=== PATIENT | male | born 1950 | race Caucasian/White ===

== ENCOUNTER 2017-04-11 21:13 | Inpatient (IN) | payer OTHER, MEDICARE ==
[2017-04-11] MEDS ORDERED: DEXAMETHASONE 4 MG TABLET PO ONE (23:18)
--- NOTE | 2017-04-11 23:18 | ER Document Report ---
ED General - General Chief Complaint: Flu Symptoms Stated Complaint: SHORTNESS OF BREATH Time Seen by Provider: 04/11/17 23:05 Notes: The patient is a 67-year-old male, past medical history hypertension, black lung , presents with 1 day of subjective fevers, dry cough and sinus congestion. Patient did not get his flu shot this year. He has had 3 other instances this winter and said that steroids and a Z-Reuben have helped him. Patient denies syncope, hemoptysis, leg swelling, chest pain at rest, headache, back pain, nausea, vomiting or abdominal pain. TRAVEL OUTSIDE OF THE [place] IN LAST 30 DAYS: No - Related Data Allergies/Adverse Reactions: sulfamethoxazole [From Bactrim] Allergy (Verified 10/08/12 09:06) trimethoprim [From Bactrim] Allergy (Verified 10/08/12 09:06) Past Medical History - General Information source: Patient - Social History Smoking Status: Never Smoker Frequency of alcohol use: None Drug Abuse: None Family History: Reviewed & Not Pertinent Patient has suicidal ideation: No Patient has homicidal ideation: No - Past Medical History Cardiac Medical History: Reports: Hx Hypercholesterolemia, Hx Hypertension Denies: Hx Atrial Fibrillation, Hx Congestive Heart Failure, Hx Coronary Artery Disease, Hx Heart Attack, Hx Peripheral Vascular Disease, Hx Pulmonary Embolism, Hx Heart Murmur Pulmonary Medical History: Denies: Hx Asthma, Hx Bronchitis, Hx COPD, Hx Pneumonia, Hx Respiratory Failure, Hx Sleep Apnea, Hx Tuberculosis Neurological Medical History: Denies: Hx Seizures Endocrine Medical History: Reports: Hx Diabetes Mellitus Type 2, Hx Hypothyroidism. Denies: Hx Graves' Disease, Hx Hyperthyroidism Renal/ Medical History: Reports: Hx Benign Prostatic Hyperplasia, Hx Kidney Stones. Denies: Hx End Stage Renal Disease, Hx Peritoneal Dialysis Malignancy Medical History: Denies Hx Lung Cancer Musculoskeltal Medical History: Reports Hx Arthritis, Denies Hx Fibromyalgia, Denies Hx Muscular Dystrophy Traumatic Medical History: Denies: Hx Fractures Past Surgical History: Reports: Hx Orthopedic Surgery - knee. Denies: Hx Appendectomy, Hx Bowel Surgery, Hx Cholecystectomy, Hx Coronary Artery Bypass Graft, Hx Gastric Bypass Surgery, Hx Herniorrhaphy, Hx Pacemaker, Hx Tonsillectomy - Immunizations Hx Diphtheria, Pertussis, Tetanus Vaccination: No Review of Systems - Review of Systems Notes: REVIEW OF SYSTEMS: CONSTITUTIONAL: +fevers, -chills EENT: -eye pain, -difficulty swallowing, +nasal congestion CARDIOVASCULAR: -chest pain, -syncope. RESPIRATORY: +cough, -SOB GASTROINTESTINAL: -abdominal pain, -nausea, -vomiting, -diarrhea GENITOURINARY: -dysuria, -hematuria MUSCULOSKELETAL: -back pain, -neck pain SKIN: -rash or skin lesions. HEMATOLOGIC: -easy bruising or bleeding. LYMPHATIC: -swollen, enlarged glands. NEUROLOGICAL: -altered mental status or loss of consciousness, -headache, - neurologic symptoms PSYCHIATRIC: -anxiety, -depression. ALL OTHER SYSTEMS REVIEWED AND NEGATIVE. Physical Exam - Vital signs Vitals: Temp Pulse Resp BP Pulse Ox 99.4 F 81 20 151/62 H 96 04/11/17 21:25 04/11/17 21:25 04/11/17 21:25 04/11/17 21:25 04/11/17 21:25 - Notes Notes: PHYSICAL EXAMINATION: GENERAL: Well-appearing, well-nourished and in no acute distress. HEAD: Atraumatic, normocephalic. EYES: Pupils equal round and reactive to light, extraocular movements intact, sclera anicteric, conjunctiva are normal. ENT: B/L maxiallary sinus tenderness with swollen turbinates, nares patent, oropharynx clear without exudates. Moist mucous membranes. NECK: Normal range of motion, supple without lymphadenopathy LUNGS: Breath sounds clear to auscultation bilaterally and equal. No wheezes rales or rhonchi. HEART: Regular rate and rhythm without murmurs ABDOMEN: Soft, nontender, normoactive bowel sounds. No guarding, no rebound. No masses appreciated. EXTREMITIES: Normal range of motion, no pitting or edema. No cyanosis. NEUROLOGICAL: Cranial nerves grossly intact. Normal speech, normal gait. Normal sensory and motor exams. PSYCH: Normal mood, normal affect. SKIN: Warm, Dry, normal turgor, no rashes or lesions noted. Course - Re-evaluation Re-evalutation: Patient does not appear to be in any respiratory distress. Unable to obtain rapid flu test due to lack of test in [place]. Patient's symptoms are ongoing for 24 hours and discussed the risks and benefits of Tamiflu with the patient. The patient and agree that the risks of Tamiflu outweigh any benefits. Chest x-ray does not show any acute infiltrates or any other abnormalities. Instructed him about symptomatic treatment for his URI and sinus congestion. Given strict return precautions and he understands. - Vital Signs Vital signs: Temp Pulse Resp BP Pulse Ox 99.4 F 81 20 151/62 H 96 04/11/17 21:25 04/11/17 21:25 04/11/17 21:25 04/11/17 21:25 04/11/17 21:25 - Diagnostic Test Radiology reviewed: Image reviewed, Reports reviewed Radiology results interpreted by me: CXR: NAD Discharge - Discharge Clinical Impression: Sinus congestion URI (upper respiratory infection) Qualifiers: URI type: unspecified URI Qualified Code(s): J06.9 - Acute upper respiratory infection, unspecified Condition: Stable Additional Instructions: UPPER RESPIRATORY ILLNESS: You have a viral infection of the respiratory passages -- a "cold." This common infection causes nasal congestion, drainage, and often sore throat and cough. It is highly contagious. The disease usually lasts about 10 to 14 days. There is no "cure" for the viral infection -- it must run its course. If there is a complication, such as bacterial infection in the nose, sinuses, middle ear, or bronchial tubes, antibiotics may be required. The antibiotics won't affect the virus. Drink plenty of fluids. A humidifier may help. An expectorant medication or decongestant may make you more comfortable. Use acetaminophen or ibuprofen for fever or aches. See the doctor if fever persists over two days, if there is any significant worsening of your symptoms, or if you simply fail to improve as expected. BRONCHOSPASM: You have tightness in the bronchial tubes, called bronchospasm. This often occurs with bronchial infections. Allergies, inhaled chemicals, and polluted or cold air can also provoke bronchospasm. It's more likely in patients with asthma in the family. Emergency treatment of bronchospasm may include adrenaline shots or bronchodilator aerosol. You may feel lightheaded and have a rapid pulse for an hour or two. Rest and get plenty of fluids. At home, we'll treat you with a bronchodilator inhaler. Antibiotics and corticosteroids may be required for some patients. Until you recover, avoid chemical fumes, dusts, pollens, and exercising in very cold or dry air. If you smoke, stop now!! If you develop a fever, increased wheezing, chest pain, or severe shortness of breath, you should contact the doctor immediately. COUGH-SUPPRESSANT & EXPECTORANT MEDICATION: You are to use a cough medication as needed for relief of symptoms. This medicine is a combination of an expectorant (to make the mucous thinner and more easily "coughed up") and a cough suppressant (to reduce the frequency of coughing). The cough-suppressant medicine is related to narcotics. You may experience mild nausea and sleepiness. Some patients who are very sensitive to narcotics may have stomach pain from this medicine. Taking the medicine with food reduces these side effects. Do not drive or work with machinery until you know how this medicine affects you. The expectorant should have no side effects. Iodine-containing expectorants (such as organidin) should not be taken by persons with active thyroid disease unless approved by your doctor. Call the doctor if you develop shortness of breath, hives, rash, itching, lightheadedness, or severe nausea and vomiting. INHALED BRONCHODILATORS: You have received a treatment of and/or prescription for an inhaled bronchodilator -- a medication which stimulates the airways in the lung to dilate. This improves the flow of air in asthma, bronchitis, and emphysema. These medicines have some similarity to adrenaline, and can cause similar side effects: shakiness, racing heart, and a sense of nervousness. These side effects decrease with time. Contact your doctor if these side effects are severe. Do not over-use the medicine. Too-frequent use of the inhaler may make it ineffective. Call your doctor if the inhaler is not controlling your symptoms at the prescribed doses. STEROID MEDICATION: You have been given an injection of or oral medicine of the cortisone/ steroid class. This medication is used to control inflammation or allergy. Enrico t is usually only given for a short period of time, until the acute process subsides. There are usually no side effects from short-term use of cortisone-like medications. Some persons feel an increased sense of well-being and are not sleepy at bedtime. Long-term use of cortisone medications is best avoided, unless required for a severe condition. If your condition does not remit, or relapses after the course of corticosteroid medication, you should consult your physician. USE OF ACETAMINOPHEN (Tylenol): Acetaminophen may be taken for pain relief or fever control. It's much safer than aspirin, offering a wider range of "safe" dosages. It is safe during . Some brand names are Tylenol, Panadol, Datril, Anacin 3, Tempra, and Liquiprin. Acetaminophen can be repeated every four hours. The following are maximum recommended dosages: >89 pounds or adults 650 mg to 900 mg Acetaminophen can be repeated every four hours. Maximum dose not to exceed 4000 mg a day. SMOKING: If you smoke, you should stop smoking. The tar and chemicals in cigarette smoke are harmful. Smoking has been shown to cause: emphysema chronic bronchitis lung cancer mouth and throat cancer stomach and pancreas cancer premature aging defects In addition, smoking increases ear and lung infections in children of smokers. FOLLOW-UP CARE: If you have been referred to a physician for follow-up care, call the physician s office for an appointment as you were instructed or within the next two days. If you experience worsening or a significant change in your symptoms, notify the physician immediately or return to the Emergency Department at any time for re-evaluation. Prescriptions: Albuterol Sulfate [Proair HFA Inhalation Aerosol 8.5 gm MDI] 2 puff IH Q4H PRN # 1 mdi PRN Reason: Dextromethorphan Polistirex [12-Hour Cough Relief] 30 mg PO Q12H 7 Days mely.er.12h Fluticasone Propionate [Flonase Nasal Shiner 50 Mcg/Shiner 16 gm] 1 spray NASL Q12 #1 inhaler Forms: Elevated Blood Pressure Referrals: DAVION ROPER PA [Primary Care Provider] - Follow up as needed
[2017-04-11] MEDS ORDERED: BENZONATATE 100 MG CAPSULE PO ONE (23:21)
--- NOTE | 2017-04-11 23:29 | RADIOLOGY REPORT (SQ) ---
EXAM DESCRIPTION: CHEST PA/LAT COMPLETED DATE/TIME: 04/11/2017 11:15 pm REASON FOR STUDY: cough, SOB COMPARISON: 03/16/2011 EXAM PARAMETERS: NUMBER OF VIEWS: two views TECHNIQUE: Digital Frontal and Lateral radiographic views of the chest acquired. RADIATION DOSE: NA LIMITATIONS: none FINDINGS: LUNGS AND PLEURA: No acute opacities, masses or pneumothorax. No pleural effusion. MEDIASTINUM AND HILAR STRUCTURES: Stable. HEART AND VASCULAR STRUCTURES: Heart normal size. No evidence for failure. BONES: No acute findings. HARDWARE: None in the chest. OTHER: No other significant finding. IMPRESSION: No acute findings. TECHNICAL DOCUMENTATION: JOB ID: [id number] 2010 [employer]- All Rights Reserved Reading location - IP/workstation name: [employer]
[2017-04-12] MEDS ORDERED: DILTIAZEM HCL INJ 25 MG/5 ML VIAL IV ONE ×2 (00:32→01:55)
[2017-04-12] MEDS ORDERED: DILTIAZEM HCL/D5W 125 MG/125 ML RTUINJ IV PRN (00:36)
[2017-04-12 01:08] LABS: ABSOLUTE BASOPHILS # (AUTO) 0.1 10^3/uL (0.0-0.2); ABSOLUTE EOSINOPHILS # (AUTO) 0.1 10^3/uL (0.0-0.6); ABSOLUTE LYMPHOCYTES (AUTO) 0.6 10^3/uL (0.5-4.7); ABSOLUTE MONOCYTES (AUTO) 0.7 10^3/uL (0.1-1.4); ABSOLUTE NEUT (AUTO) 7.3 10^3/uL (1.7-8.2); BASOPHILS % (AUTO) 0.8 % (0-2); EOSINOPHILS % (AUTO) 1.2 % (0-6); HEMATOCRIT 45.5 % (37.9-51.0); HEMOGLOBIN 15.2 g/dL (13.5-17.0); LYMPHOCYTES % (AUTO) 6.4 % (13-45); MEAN CORPUSCULAR HEMOGLOBIN 30.2 pg (27.0-33.4); MEAN CORPUSCULAR HGB CONC 33.4 g/dL (32.0-36.0); MEAN CORPUSCULAR VOLUME 91 fl (80-97); MONOCYTES % (AUTO) 8.2 % (3-13); PLATELET COUNT 205 10^3/uL (150-450); RED BLOOD COUNT 5.02 10^6/uL (4.35-5.55); SEGMENTED NEUTROPHILS % (AUTO) 83.4 % (42-78); TOTAL CELLS COUNTED % (AUTO) 100 %; WHITE BLOOD COUNT 8.8 10^3/uL (4.0-10.5)
[2017-04-12 01:29] LABS: ALANINE AMINOTRANSFERASE 30 U/L (21-72); ALBUMIN 4.3 g/dL (3.5-5.0); ALKALINE PHOSPHATASE 98 U/L (38-126); ANION GAP 14 (5-19); ASPARTATE AMINO TRANSFERASE 16 U/L (17-59); BILIRUBIN,DIRECT 0.5 mg/dL (0.0-0.4); BILIRUBIN,TOTAL 0.6 mg/dL (0.2-1.3); BLOOD UREA NITROGEN 19 mg/dL (7-20); CALCIUM 9.8 mg/dL (8.4-10.2); CARBON DIOXIDE 26 mmol/L (22-30); CHLORIDE 108 mmol/L (98-107); GLUCOSE 122 mg/dL (75-110); POTASSIUM 4.3 mmol/L (3.6-5.0); SODIUM 148.2 mmol/L (137-145); TOTAL PROTEIN 7.5 g/dL (6.3-8.2)
[2017-04-12 01:40] LABS: NT PRO BNP 262 pg/mL (5-900)
[2017-04-12 01:52] LABS: TROPONIN I < 0.012 ng/mL
[2017-04-12] MEDS ORDERED: METOPROLOL TARTRATE PF/INJ 5 MG/5 ML SDV IV STA (02:33)
[2017-04-12] MEDS ORDERED: METOPROLOL TARTRATE 25 MG TABLET PO ONE (02:36)
[2017-04-12] MEDS ORDERED: ENOXAPARIN SODIUM INJ 150 MG/1 ML DISP.SYRIN SUBCUT ONE (02:37)
[2017-04-12] MEDS ORDERED: MAGNESIUM HYDROXIDE SUSP 30 ML UDCUP PO PRN (04:39)
[2017-04-12] MEDS ORDERED: IPRATROPIUM/ALBUTEROL 0.5-2.5 MG/3 ML AMPUL NEB PRN (04:39)
[2017-04-12] MEDS ORDERED: ACETAMINOPHEN 325 MG TABLET PO PRN (04:39)
[2017-04-12] MEDS: HEPARIN SOD (PORCINE) 5,000 UNIT/ML 1 ML SYRINGE SUBCUT SCH ×3 (06:41→22:03)
--- NOTE | 2017-04-12 09:17 | EKG REPORT ---
SEVERITY:- ABNORMAL ECG - SINUS TACHYCARDIA REPOLARIZATION ABNORMALITY, PROB RATE RELATED : Confirmed by: Rush Ballesteros 12-Apr-2017 09:16:27
--- NOTE | 2017-04-12 09:17 | EKG REPORT ---
SEVERITY:- ABNORMAL ECG - SINUS TACHYCARDIA ST DEPRESSION, PROBABLY RATE RELATED : Confirmed by: Rush Ballesteros 12-Apr-2017 09:16:12
--- NOTE | 2017-04-12 09:17 | EKG REPORT ---
SEVERITY:- NORMAL ECG - SINUS RHYTHM : Confirmed by: Rush Ballesteros 12-Apr-2017 09:16:18
[2017-04-12] MEDS ORDERED: (PENDING PHARMACY ID) (Lisinopril [Lisinopril] 20 MG) PO SCH (10:00)
[2017-04-12] MEDS ORDERED: DOCUSATE SODIUM 100 MG/10 ML UDC PO SCH (10:00)
[2017-04-12] MEDS ORDERED: LOPRESSOR 25 MG PO SCH (10:00)
[2017-04-12] MEDS: ALLOPURINOL 100 MG TABLET PO SCH (11:17)
[2017-04-12] MEDS: LEVOTHYROXINE SODIUM 0.075 MG TABLET PO SCH (11:17)
[2017-04-12] MEDS: LISINOPRIL 10 MG TABLET PO SCH (11:18)
[2017-04-12] MEDS: DOCUSATE SODIUM 100 MG CAPSULE PO SCH ×2 (11:19→18:28)
[2017-04-12] MEDS: METOPROLOL TARTRATE 50 MG TABLET PO SCH ×2 (11:21→22:02)
--- NOTE | 2017-04-12 14:27 | Physician Advisory Note ---
Physician Advisor ProgressNote .: Pursuant to the plan for [facility], I have reviewed the medical record for this patient. Physician Advisor Statement: Please consider documenting, if you agree: 1. "Acute hypernatremia, suspect due to ", & state how this is being addressed. 2. "obesity w/BMI 46.3" 3. Medical necessity: reason(s) why pt not clinically safe for d/c later today ("pt's ___ not back to baseline", "I AM CONCERNED about ", ...). Otherwise, status should be Obs. STatus: pts w/PAfib RVR are typically Obs 'til proven otherwise. This pt has underlying HTN, HLD, DM-2, morbid obesity, hypothyroidism, BPH, & black lung. He came in w/URI type sx, bronchospasm, & found to have suspected PAfib w/RVR, hypernatremia. Nursing eval at 6AM on 04/12 indicates pt still w/PARDO , & inability to lie flat (?new or chronic?). Thanks! CK
[2017-04-12] MEDS ORDERED: TAMSULOSIN HCL 0.4 MG CAP.SR.24H PO SCH (18:00)
--- NOTE | 2017-04-12 19:31 | PDOC CONSULTATION ---
Consultation Consult Date: 04/12/17 Attending physician:: MAYURI AJ Consult reason:: Atrial fibrillation History of Present Illness Admission Date/PCP: 04/12/17 03:00 CRISTAL TAVARES Patient complains of: Shortness of breath History of Present Illness: JODI LEONARD is a 67 year old male with past medical history hypertension, black lung, presents with 1 day of subjective fevers, dry cough and sinus congestion. Patient did not get his flu shot this year. He has had 3 other instances this winter and said that steroids and a Z-Reuben have helped him. Patient denies syncope, hemoptysis, leg swelling, chest pain at rest, headache, back pain, nausea, vomiting or abdominal pain. Patient has chronic pedal edema which has been going on for last several weeks. Patient also has chronic abdominal swelling which she claims is also chronic. Patient was noted to have rapid heartbeat in the emergency room. Subsequently got Lopressor and also Cardizem. EKG is available does not show definitive A. fib but a tachycardic rhythm which is rather regular. Feel that it is mostly sinus tachycardia but would be considered high for a person in his age group. It could well be some kind of paroxysmal atrial tachycardia or ectopic atrial tachycardia. Patient denied any prior history of heart problems. 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 Past Medical History Cardiac Medical History: Reports: Hyperlipidema, Hypertension Denies: Atrial Fibrillation, Congestive Heart Failure, Coronary Artery Disease, Myocardial Infarction, Peripheral Vascular Disease, Pulmonary Embolism , Heart Murmur Pulmonary Medical History: Denies: Asthma, Bronchitis, Chronic Obstructive Pulmonary Disease (COPD), Pneumonia, Respiratory Failure, Sleep Apnea, Tuberculosis Neurological Medical History: Denies: Seizures Endocrine Medical History: Reports: Diabetes Mellitus Type 2, Hypothyroidism Denies: Hyperthyroidism Renal/ Medical History: Denies: End Stage Renal Disease Malignancy Medical History: Denies: Lung Cancer Musculoskeltal Medical History: Reports: Arthritis Denies: Fibromyalgia Past Surgical History Past Surgical History: Reports: Orthopedic Surgery - knee Denies: Appendectomy, Cholecystectomy, Coronary Artery Bypass Graft, Gastric Bypass Surgery, Herniorrhaphy, Pacemaker, Tonsillectomy Social History Information Source: Patient Smoking Status: Never Smoker Frequency of Alcohol Use: None Hx Recreational Drug Use: No Drugs: None Hx Prescription Drug Abuse: No - Advance Directive Resuscitation Status: Full Code Family History Family History: Hypertension Parental Family History Reviewed: Yes Children Family History Reviewed: Yes Sibling(s) Family History Reviewed.: Yes Medication/Allergy Home Medications: Allopurinol [Zyloprim 100 mg Tablet] 100 mg PO DAILY 04/12/17 Insulin Aspart [Novolog Flexpen] 14 unit SQ ACBRKFST 04/12/17 Insulin Aspart [Novolog Flexpen] 16 units SQ ACLUNCH 04/12/17 Insulin Aspart [Novolog Flexpen] 42 units SQ ACSUPPER 04/12/17 Insulin Detemir [Levemir Flextouch] 40 units SQ QHS 04/12/17 Krill/Om-3/Dha/Epa/Phospho/Ast [Krill Oil 500 mg Softgel] 500 mg PO DAILY Levothyroxine Sodium [Synthroid 0.075 mg Tablet] 0.075 mg PO Q6AM 04/12/17 Lisinopril [Prinivil 40 mg Tablet] 40 mg PO Q12 04/12/17 Meloxicam [Mobic] 15 mg PO DAILYP PRN 04/12/17 Metoprolol Tartrate [Lopressor 50 mg Tablet] 50 mg PO Q12 04/12/17 Nifedipine [Nifedipine ER] 30 mg PO DAILY 04/12/17 Omeprazole 40 mg PO ACBRKFST 04/12/17 Tamsulosin HCl [Flomax 0.4 mg Cap.sr] 0.4 mg PO DAILY 04/12/17 Allergies/Adverse Reactions: sulfamethoxazole [From Bactrim] Allergy (Verified 10/08/12 09:06) trimethoprim [From Bactrim] Allergy (Verified 10/08/12 09:06) Review of Systems Review of Systems: Please see history of present illness and past medical history as wall. Constitutional: No fever or chills reported. Head : No recent chronic headaches, recent head injury. Eyes: No recent eye pain, diplopia, redness, discharge, acute visual changes. Ears: No recent chronic ear pain, acute hearing loss, ear discharge. Oral cavity: No recent ulcerations, bleeding, oral cavity discomfort. Neck: No recent acute neck pain reported. Hematologic: No recent easy bruising or bleeding or hematologic malignancy reported. Lymphatic: No recent lymphatic malignancy, chronic lymphadenopathy reported yet Cardiovascular system review: See history of present illness. Respiratory system review: No recent chronic cough, hemoptysis, blood clots in the lungs reported. Shortness of breath on exertion. Patient noted some pedal edema. Gastrointestinal system review: Negative for any recent acute or chronic abdominal pain, hematemesis, melena, recent change in bowel habits. Genitourinary system review: No recent acute or chronic hematuria, flank pain, UTI etc. reported. Skin system review: Negative for any recent abnormal bruising, no rash, no pruritus reported. Neurologic: No prior history of strokes, mini strokes, seizure disorder. Psychologic: No history of major psychosis or major depression reported. Musculoskeletal: Minor aches and pains reported. No acute joint swelling reported. Endocrine: No recent polyuria, polydipsia, recent heat or cold intolerance. Physical Exam Vital Signs: Temp Pulse Resp BP Pulse Ox 98.7 F 68 20 147/58 H 97 04/12/17 16:47 04/12/17 16:47 04/12/17 16:47 04/12/17 16:47 04/12/17 16:47 Intake & Output 04/11/17 04/12/17 04/13/17 06:59 06:59 06:59 Intake Total 1209 Output Total 220 Balance 989 Weight 138 kg Exam: GENERAL: well-nourished and in no acute distress. Alert and oriented x3 HEAD: Atraumatic, normocephalic. EYES: Pupils equal round and reactive to light, extraocular movements intact, sclera anicteric, conjunctiva are normal. ENT: TMs normal, nares patent, oropharynx clear without exudates. Moist mucous membranes. No oral ulcerations or bleeding gums noted NECK: supple without lymphadenopathy. Trachea is central. No cervical or axillary lymphadenopathy noted. Carotids are 2+, JVD WNL LUNGS: Respiration seems nonlabored, no significant accessory muscle action noted. Breath sounds clear to auscultation bilaterally and equal noted. No wheezes rales or rhonchi noted. No significant dullness noted on percussion. CHEST: Palpation of the chest wall shows no significant chest wall tenderness. No other significant abnormalities noted. HEART: [place] [employer], No PSH, 1/6 WINTER aortic area, 1/6 mathew systolic murmur mitral area, no rubs, no gallops. ABDOMEN: Soft, no significant tenderness appreciated, normoactive bowel sounds. No guarding, no rebound. No rigidity noted . No masses appreciated. Abdomen is distended but nontender. No ascites elicited. EXTREMITIES: Pedal pulses are 1-2+, no calf tenderness noted. No clubbing or cyanosis. 2 + pedal edema noted NEUROLOGICAL: Focused neurological exam showed no significant neurologic deficit. Normal speech, no focal weakness appreciated. PSYCH: Normal mood, normal affect. Judgment and insight within normal limits. SKIN: No significant ecchymosis, skin is noted to be warm. MUSCULOSKELETAL EXAM: No significant acute joint swelling noted. Results EKG Comments: Multiple EKGs reviewed. Those EKGs which has been scanned did not show any definitive atrial fibrillation. Rhythm strip is noted to be equivocal for definitive diagnosis of atrial fibrillation. Impressions: Chest X-Ray 04/11/17 23:05 IMPRESSION: No acute findings. Assessment & Plan - Diagnosis (1) Cardiac dysrhythmia, unspecified Qualifiers: Arrhythmia type: unspecified cardiac arrhythmia Qualified Code(s): I49.9 - Cardiac arrhythmia, unspecified Is this a current diagnosis for this admission?: Yes (2) Obesity Qualifiers: Obesity type: unspecified obesity type Body mass index: unspecified BMI Is this a current diagnosis for this admission?: Yes (3) Hypertension Qualifiers: Hypertension type: essential hypertension Qualified Code(s): I10 - Essential (primary) hypertension Is this a current diagnosis for this admission?: Yes (4) Diabetes Qualifiers: Diabetes mellitus type: type 2 Diabetes mellitus complication status: with unspecified complications Diabetes mellitus care home insulin use: unspecified care home insulin use status Qualified Code(s): E11.8 - Type 2 diabetes mellitus with unspecified complications Is this a current diagnosis for this admission?: Yes (5) Pedal edema Is this a current diagnosis for this admission?: Yes (6) Abdominal distention Is this a current diagnosis for this admission?: Yes - Notes Notes: Cardiac dysrhythmia: It is difficult to decide based on available strips whether patient really had atrial fibrillation on not. May be some strips are lost. At this point will recommend obtaining a 2D echocardiogram and also scheduling patient for a cardiac event monitor/mobile cardiac telemetry monitoring. Patient surprisingly did not feel much symptoms when he was in abnormal rhythm. Obesity: Patient will benefit from weight loss. Hypertension: Blood pressure reasonably well controlled. Diabetes: Currently stable. Continue current management plans. Pedal edema: BNP WNL. Do not see evidence of elevated JVP therefore could well be due to venous insufficiency or dependency. Patient will benefit from leg elevation. Could use diuretics for symptomatic relief. Abdominal distention: This is chronic. A previous CT scan from 2011 shows significant intraperitoneal and visceral fat deposition. Further plans after 2D echo. We will repeat an EKG in the morning. Have repeated a lipid panel. - Time Time Spent: 30 to 50 Minutes - CODE STATUS was discussed, patient remains full code. Surrogate decision-maker unchanged. Multiple medical problems were addressed. More than 50% of the time spent coordinating care, discussing management plans with involved caregivers. Management plans discussed with involved personnels. Medical decision making was of moderate to high complexity , patient's has multiple comorbidities. Medications reviewed and adjusted accordingly: Yes
[2017-04-12 20:28] LABS: CHOLESTEROL 171.26 mg/dL (0-200); TRIGLYCERIDES 95 mg/dL (<150)
[2017-04-12 20:39] LABS: DIRECT LDL 106 mg/dL (<100)
[2017-04-12] MEDS ORDERED: INSULIN DETEMIR 100 UNIT/ML 3 ML PEN SUBCUT SCH (22:00)
[2017-04-13] MEDS: HEPARIN SOD (PORCINE) 5,000 UNIT/ML 1 ML SYRINGE SUBCUT SCH ×2 (05:02→15:13)
[2017-04-13 05:31] LABS: HEMOGLOBIN 14.4 g/dL (13.5-17.0); MEAN CORPUSCULAR HEMOGLOBIN 30.2 pg (27.0-33.4); MEAN CORPUSCULAR HGB CONC 33.6 g/dL (32.0-36.0); MEAN CORPUSCULAR VOLUME 90 fl (80-97); PLATELET COUNT 218 10^3/uL (150-450); RED BLOOD COUNT 4.77 10^6/uL (4.35-5.55); RED CELL DISTRIBUTION WIDTH 14.2 % (11.5-14.0); WHITE BLOOD COUNT 9.7 10^3/uL (4.0-10.5)
[2017-04-13 05:45] LABS: ANION GAP 12 (5-19); BLOOD UREA NITROGEN 27 mg/dL (7-20); CALCIUM 9.6 mg/dL (8.4-10.2); CARBON DIOXIDE 24 mmol/L (22-30); CHLORIDE 109 mmol/L (98-107); GLUCOSE 85 mg/dL (75-110); POTASSIUM 4.5 mmol/L (3.6-5.0); SODIUM 144.9 mmol/L (137-145)
--- NOTE | 2017-04-13 09:05 | EKG REPORT ---
SEVERITY:- ABNORMAL ECG - SINUS RHYTHM MULTIPLE ATRIAL PREMATURE COMPLEXES : Confirmed by: Rush Ballesteros 13-Apr-2017 09:05:02
[2017-04-13] MEDS: ALLOPURINOL 100 MG TABLET PO SCH (11:05)
[2017-04-13] MEDS: LEVOTHYROXINE SODIUM 0.075 MG TABLET PO SCH (11:05)
[2017-04-13] MEDS: LISINOPRIL 10 MG TABLET PO SCH (11:07)
[2017-04-13] MEDS: DOCUSATE SODIUM 100 MG CAPSULE PO SCH (11:07)
[2017-04-13] MEDS ORDERED: METOPROLOL SUCCINATE 25 MG TAB.SR.24H PO ONE (11:30)
--- NOTE | 2017-04-13 11:41 | PDOC PROGRESS REPORT ---
Subjective Progress Note for:: 04/13/17 Subjective:: Patient states that he is feeling much better. Patient is anticipating being discharged home today. Reason For Visit: TACHYCARDIA, SOB, DIABETES, ROSIE, HYPOTHYROID Physical Exam Vital Signs: Temp Pulse Resp BP Pulse Ox 98.9 F 94 16 142/59 H 98 04/13/17 08:03 04/13/17 08:03 04/13/17 08:03 04/13/17 08:03 04/13/17 08:03 Intake & Output 04/12/17 04/13/17 04/14/17 06:59 06:59 06:59 Intake Total 1329 Output Total 220 Balance 1109 Weight 138 kg 137 kg General appearance: PRESENT: no acute distress, well-developed, well-nourished Head exam: PRESENT: atraumatic, normocephalic Eye exam: PRESENT: conjunctiva pink, EOMI. ABSENT: scleral icterus Ear exam: PRESENT: normal external ear exam Mouth exam: PRESENT: moist, tongue midline Neck exam: ABSENT: carotid bruit, JVD, lymphadenopathy, thyromegaly Respiratory exam: PRESENT: clear to auscultation martin. ABSENT: rales, rhonchi, wheezes Cardiovascular exam: PRESENT: RRR. ABSENT: diastolic murmur, rubs, systolic murmur Pulses: PRESENT: normal dorsalis pedis pul Vascular exam: PRESENT: normal capillary refill GI/Abdominal exam: PRESENT: normal bowel sounds, soft. ABSENT: distended, guarding, mass, organolmegaly, rebound, tenderness Rectal exam: PRESENT: deferred Extremities exam: PRESENT: full ROM. ABSENT: calf tenderness, clubbing, pedal edema Musculoskeletal exam: PRESENT: full ROM Neurological exam: PRESENT: alert, awake, oriented to person, oriented to place , oriented to time, oriented to situation, CN II-XII grossly intact. ABSENT: motor sensory deficit Psychiatric exam: PRESENT: appropriate affect, normal mood. ABSENT: homicidal ideation, suicidal ideation Skin exam: PRESENT: dry, intact, warm. ABSENT: cyanosis, rash Results Laboratory Results: 04/13/17 05:00 04/13/17 05:00 04/13/17 04/13/17 05:00 05:00 WBC 9.7 RBC 4.77 Hgb 14.4 Hct 43.0 MCV 90 MCH 30.2 MCHC 33.6 RDW 14.2 H Plt Count 218 Sodium 144.9 Potassium 4.5 Chloride 109 H Carbon Dioxide 24 Anion Gap 12 BUN 27 H Creatinine 1.13 Est GFR ( Amer) > 60 Est GFR (Non-Af Amer) > 60 Glucose 85 Calcium 9.6 Impressions: Chest X-Ray 04/11/17 23:05 IMPRESSION: No acute findings. Assessment & Plan - Diagnosis (1) Cardiac dysrhythmia, unspecified Qualifiers: Arrhythmia type: unspecified cardiac arrhythmia Qualified Code(s): I49.9 - Cardiac arrhythmia, unspecified Is this a current diagnosis for this admission?: Yes Plan: Echo pending. Cardiology recommending that patient be arranged for a holter monitor at time of discharge. 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 (3) Hypertension Qualifiers: Hypertension type: essential hypertension Qualified Code(s): I10 - Essential (primary) hypertension Is this a current diagnosis for this admission?: Yes Plan: Continue patient's current home medications. (4) Obesity Qualifiers: Obesity type: unspecified obesity type Body mass index: unspecified BMI Is this a current diagnosis for this admission?: Yes Plan: Encourage dietary changes. - Time Time Spent with patient: 15-24 minutes - Will plan on discharging patient today once cardiology has reviewed echo
--- NOTE | 2017-04-13 13:11 | XCELERA REPORT ---
[address] [address] Transthoracic Echocardiogram Report Name: JODI LEONARD Age: 67 yrs Gender: Male : 1950 Patient Status: Inpatient Patient Location: [address] [place] [address] Study Date: 04/13/2017 10:10 AM Height: 68 in Weight: 304 lb BSA: 2.4 m2 Procedure: A complete two-dimensional transthoracic echocardiogram was performed (2D, M-mode, spectral and color flow Doppler). The study was technically difficult with many images being suboptimal in quality. Reason For Study: Cardiac dysrhythmia, atrial fibrillation Ordering Physician: RUSH ROSS Performed By: Margot Lundberg Interpretation Summary The study was technically difficult with many images being suboptimal in quality. The left ventricular ejection fraction is preserved. Consider additional methods to assess LVEF such as MUGA scan, CTA heart, cardiac MRI, BHUPINDER, etc. if clinically indicated. There is mild concentric left ventricular hypertrophy. The left ventricle is grossly normal size. Doppler measurements suggest pseudonormalized left ventricular relaxation, which is associated with grade II/IV or mild to moderate diastolic dysfunction Regional wall motion abnormalities cannot be excluded due to limited visualization. The right ventricle is mildly dilated. The right ventricular systolic function is borderline reduced. The left atrium is mildly dilated. The right atrium is moderately dilated. There is a mild amount of mitral regurgitation There is no mitral valve stenosis. There is no aortic valve stenosis No aortic regurgitation is present. There is a trace or physiologic amount of tricuspid regurgitation Tricuspid regurgitation jet envelope not well defined to measure RV systolic pressure accurately. The aortic root is not well visualized. The inferior vena cava was not well visualized Minimal pericardial effusion. MMode/2D Measurements & Calculations RVDd: 3.4 cm LVIDd: 4.7 cm FS: 35.8 % Ao root diam: 2.4 cm IVSd: 1.1 cm LVIDs: 3.0 cm EDV(Teich): 102.2 ml LVPWd: 1.3 cm ESV(Teich): 35.4 ml Ao root area: 4.7 cm2 EF(Teich): 65.4 % Doppler Measurements & Calculations MV E max ziyad: MV dec slope: Ao V2 max: LV V1 max P.1 cm/sec 187.2 cm/sec 11.4 mmHg MV A max ziyad: 502.3 cm/sec2 Ao max PG: LV V1 max: 100.9 cm/sec MV dec time: 14.0 mmHg 168.5 cm/sec MV E/A: 1.1 0.23 sec TR max ziyad: 202.3 cm/sec TR max P.4 mmHg Left Ventricle The left ventricle is grossly normal size. There is mild concentric left ventricular hypertrophy. The left ventricular ejection fraction is preserved. Consider additional methods to assess LVEF such as MUGA scan, CTA heart, cardiac MRI, BHUPINDER, etc. if clinically indicated. Doppler measurements suggest pseudonormalized left ventricular relaxation, which is associated with grade II/IV or mild to moderate diastolic dysfunction. Regional wall motion abnormalities cannot be excluded due to limited visualization. Right Ventricle The right ventricle is mildly dilated. The right ventricular systolic function is borderline reduced. Atria The right atrium is moderately dilated. The left atrium is mildly dilated. Interarterial septum not well visualized and not well dopplered. Cannot comment on ASD/PFO presence. Mitral Valve The mitral valve leaflets are sclerotic, but show no functional abnormalities. There is no mitral valve stenosis. There is a mild amount of mitral regurgitation. Aortic Valve The aortic valve is not well visualized secondary to technical limitations. There is no aortic valve stenosis. No aortic regurgitation is present. Tricuspid Valve The tricuspid valve is not well visualized secondary to technical limitations. There is no tricuspid stenosis. There is a trace or physiologic amount of tricuspid regurgitation. Tricuspid regurgitation jet envelope not well defined to measure RV systolic pressure accurately. Pulmonic Valve The pulmonic valve is not well visualized. Great Vessels The aortic root is not well visualized. The inferior vena cava was not well visualized. Effusions Minimal pericardial effusion. : RUSH ROSS > Rush Ross
--- NOTE | 2017-04-13 15:13 | PDOC DISCHARGE SUMMARY ---
General - Admit/Disc Date/PCP Admission Date/Primary Care Provider: 04/12/17 03:00 CRISTAL TAVARES Discharge Date: 04/13/17 - Discharge Diagnosis (1) Cardiac dysrhythmia, unspecified Is this a current diagnosis for this admission?: Yes Summary: Tachyarrhythmia: Patient was seen by cardiology and was placed on metoprolol succinate. Patient will follow cardiology as outpatient. (2) Diabetes Is this a current diagnosis for this admission?: Yes Summary: Pt will continue home insulin regimen (3) Hypertension Is this a current diagnosis for this admission?: Yes Summary: We will continue patient's home medications (4) Obesity Is this a current diagnosis for this admission?: Yes Summary: Encourage dietary changes. (5) Sinusitis Is this a current diagnosis for this admission?: Yes Summary: Augmentin for 10 days. - Additional Information Resuscitation Status: Full Code Discharge Diet: Diabetic Discharge Activity: Activity As Tolerated Prescriptions: Amox Tr/Potassium Clavulanate [Augmentin 875-125 mg Tablet] 1 tab PO BID #20 tablet Metoprolol Succinate [Toprol Xl 25 mg Tab.sr] 25 mg PO Q12 #30 tab.sr.24h Home Medications: Allopurinol [Zyloprim 100 mg Tablet] 100 mg PO DAILY 04/12/17 Insulin Aspart [Novolog Flexpen] 14 unit SQ ACBRKFST 04/12/17 Insulin Aspart [Novolog Flexpen] 16 units SQ ACLUNCH 04/12/17 Insulin Aspart [Novolog Flexpen] 42 units SQ ACSUPPER 04/12/17 Insulin Detemir [Levemir Flextouch] 40 units SQ QHS 04/12/17 Krill/Om-3/Dha/Epa/Phospho/Ast [Krill Oil 500 mg Softgel] 500 mg PO DAILY Levothyroxine Sodium [Synthroid 0.075 mg Tablet] 0.075 mg PO Q6AM 04/12/17 Lisinopril [Prinivil 40 mg Tablet] 40 mg PO Q12 04/12/17 Meloxicam [Mobic] 15 mg PO DAILYP PRN 04/12/17 Nifedipine [Nifedipine ER] 30 mg PO DAILY 04/12/17 Omeprazole 40 mg PO ACBRKFST 04/12/17 Tamsulosin HCl [Flomax 0.4 mg Cap.sr] 0.4 mg PO DAILY 04/12/17 Amox Tr/Potassium Clavulanate [Augmentin 875-125 mg Tablet] 1 tab PO BID #20 tablet 04/13/17 Metoprolol Succinate [Toprol Xl 25 mg Tab.sr] 25 mg PO Q12 #30 tab.sr.24h Tamsulosin HCl [Flomax 0.4 mg Cap.sr] 0.4 mg PO PCSUPPER cap.sr.24h 04/13/17 History of Present Illness Patient complains of: tachycardia History of Present Illness: JODI LEONARD is a 67 year old male presents with complaint of sinusitis. While in the emergency room patient was found to be tachycardic. Hospital Course Hospital Course: Patient is a 67-year-old gentleman who presented to our facility with complaint of sinusitis. In the emergency department patient was noted to be tachycardic and therefore ER did not feel comfortable discharging patient home. Patient was admitted to the hospital where he was seen by cardiology cardiology did a 2D echo which demonstrated no significant abnormalities and patient's metoprolol was increased. During this admission radiology was unable to determine whether patient was experiencing sinus tachycardia versus A. fib. Physical Exam Vital Signs: Temp Pulse Resp BP Pulse Ox 98.9 F 94 16 142/59 H 98 04/13/17 08:03 04/13/17 08:03 04/13/17 08:03 04/13/17 08:03 04/13/17 08:03 Intake & Output 04/12/17 04/13/17 04/14/17 06:59 06:59 06:59 Intake Total 1329 Output Total 220 Balance 1109 Weight 138 kg 137 kg 137 kg General appearance: PRESENT: no acute distress, morbidly obese, well-developed, well-nourished Head exam: PRESENT: atraumatic, normocephalic Eye exam: PRESENT: conjunctiva pink, EOMI. ABSENT: scleral icterus Ear exam: PRESENT: normal external ear exam Mouth exam: PRESENT: moist, tongue midline Neck exam: ABSENT: carotid bruit, JVD, lymphadenopathy, thyromegaly Respiratory exam: PRESENT: clear to auscultation martin. ABSENT: rales, rhonchi, wheezes Cardiovascular exam: PRESENT: RRR. ABSENT: diastolic murmur, rubs, systolic murmur Pulses: PRESENT: normal dorsalis pedis pul Vascular exam: PRESENT: normal capillary refill GI/Abdominal exam: PRESENT: normal bowel sounds, soft. ABSENT: distended, guarding, mass, organolmegaly, rebound, tenderness Rectal exam: PRESENT: deferred Extremities exam: PRESENT: full ROM. ABSENT: calf tenderness, clubbing, pedal edema Musculoskeletal exam: PRESENT: full ROM Neurological exam: PRESENT: alert, awake, oriented to person, oriented to place , oriented to time, oriented to situation, CN II-XII grossly intact. ABSENT: motor sensory deficit Psychiatric exam: PRESENT: appropriate affect, normal mood. ABSENT: homicidal ideation, suicidal ideation Skin exam: PRESENT: dry, intact, warm. ABSENT: cyanosis, rash Results Laboratory Results: 04/13/17 05:00 04/13/17 05:00 04/13/17 04/13/17 05:00 05:00 WBC 9.7 RBC 4.77 Hgb 14.4 Hct 43.0 MCV 90 MCH 30.2 MCHC 33.6 RDW 14.2 H Plt Count 218 Sodium 144.9 Potassium 4.5 Chloride 109 H Carbon Dioxide 24 Anion Gap 12 BUN 27 H Creatinine 1.13 Est GFR ( Amer) > 60 Est GFR (Non-Af Amer) > 60 Glucose 85 Calcium 9.6 Impressions: Chest X-Ray 04/11/17 23:05 IMPRESSION: No acute findings. Qualifiers - * PATEINT BEING DISCHARGED WITH ANY OF THE FOLLOWING DIAGNOSIS?: No Plan Time Spent: Less than 30 Minutes
[2017-04-13 15:14] LABS: APPEARANCE,URINE CLEAR; BILIRUBIN,URINE NEGATIVE (NEGATIVE); COLOR,URINE STRAW; GLUCOSE, URINE NEGATIVE (NEGATIVE); KETONES,URINE NEGATIVE (NEGATIVE); LEUKOCYTE ESTERASE,URINE NEGATIVE (NEGATIVE); NITRITE,URINE NEGATIVE (NEGATIVE); PROTEIN,URINE NEGATIVE (NEGATIVE); URINE SPECIFIC GRAVITY 1.012; UROBILINOGEN,URINE NEGATIVE mg/dL (<2.0)
[2017-04-13 15:19] VITALS: BP 135/56
--- NOTE | 2017-04-13 18:47 | PDOC PROGRESS REPORT ---
Subjective Progress Note for:: 04/13/17 Subjective:: Patient seems to be doing better with no new complaints. Pt is denying any chest arm or neck discomfort. Patient denying any PND, orthopnea. Patient denied any sustained palpitations, dizziness, syncope, near syncope. Patient denying any fever chills. Patient denying any other significant discomfort. Patient is maintaining sinus rhythm. Frequent APCs were however noted Review of systems: Rest review of systems negative. Medications: Medications have been reviewed. Reason For Visit: TACHYCARDIA, SOB, DIABETES, ROSIE, HYPOTHYROID Physical Exam Vital Signs: Temp Pulse Resp BP Pulse Ox 98.7 F 55 L 18 135/56 H 98 04/13/17 15:21 04/13/17 15:21 04/13/17 15:21 04/13/17 15:21 04/13/17 15:21 Intake & Output 04/12/17 04/13/17 04/14/17 06:59 06:59 06:59 Intake Total 1329 Output Total 220 Balance 1109 Weight 138 kg 137 kg 137 kg Exam: GENERAL: well-nourished and in no acute distress. Alert and oriented x3 HEAD: Atraumatic, normocephalic. EYES: Pupils equal round and reactive to light, extraocular movements intact, sclera anicteric, conjunctiva are normal. ENT: TMs normal, nares patent, oropharynx clear without exudates. Moist mucous membranes. No oral ulcerations or bleeding gums noted NECK: supple without lymphadenopathy. Trachea is central. No cervical or axillary lymphadenopathy noted. Carotids are 2+, JVD WNL LUNGS: Respiration seems nonlabored, no significant accessory muscle action noted. Breath sounds clear to auscultation bilaterally and equal noted. No wheezes rales or rhonchi noted. No significant dullness noted on percussion. CHEST: Palpation of the chest wall shows no significant chest wall tenderness. No other significant abnormalities noted. 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 ABDOMEN: Soft, no significant tenderness appreciated, normoactive bowel sounds. No guarding, no rebound. No rigidity noted . No masses appreciated. Abdomen is very obese. EXTREMITIES: Pedal pulses are 1-2+, no calf tenderness noted. No clubbing or cyanosis. 1-2 + pedal edema noted NEUROLOGICAL: Focused neurological exam showed no significant neurologic deficit. Normal speech, no focal weakness appreciated. PSYCH: Normal mood, normal affect. Judgment and insight within normal limits. SKIN: No significant ecchymosis, skin is noted to be warm. Mild chronic dermatitis changes noted especially left leg. MUSCULOSKELETAL EXAM: No significant acute joint swelling noted. Results Laboratory Results: 04/13/17 05:00 04/13/17 05:00 04/13/17 04/13/17 04/13/17 05:00 05:00 15:00 WBC 9.7 RBC 4.77 Hgb 14.4 Hct 43.0 MCV 90 MCH 30.2 MCHC 33.6 RDW 14.2 H Plt Count 218 Sodium 144.9 Potassium 4.5 Chloride 109 H Carbon Dioxide 24 Anion Gap 12 BUN 27 H Creatinine 1.13 Est GFR ( Amer) > 60 Est GFR (Non-Af Amer) > 60 Glucose 85 Calcium 9.6 Urine Color STRAW Urine Appearance CLEAR Urine pH 5.0 Ur Specific [place] 1.012 Urine Protein NEGATIVE Urine Glucose (UA) NEGATIVE Urine Ketones NEGATIVE Urine Blood NEGATIVE Urine Nitrite NEGATIVE Ur Leukocyte Esterase NEGATIVE Urine WBC (Auto) 0 EKG Comments: Telemetry strips shows sinus rhythm with frequent APCs. Impressions: Chest X-Ray 04/11/17 23:05 IMPRESSION: No acute findings. Assessment & Plan - Diagnosis (1) Cardiac dysrhythmia, unspecified Qualifiers: Arrhythmia type: unspecified cardiac arrhythmia Qualified Code(s): I49.9 - Cardiac arrhythmia, unspecified Is this a current diagnosis for this admission?: Yes (2) Obesity Qualifiers: Obesity type: unspecified obesity type Body mass index: unspecified BMI Is this a current diagnosis for this admission?: Yes (3) Hypertension Qualifiers: Hypertension type: essential hypertension Qualified Code(s): I10 - Essential (primary) hypertension Is this a current diagnosis for this admission?: Yes (4) Diabetes Qualifiers: Diabetes mellitus type: type 2 Diabetes mellitus complication status: with unspecified complications 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 It is difficult to decide based on available strips whether patient really had atrial fibrillation on not. May be some strips are lost. 2D echo results were reviewed. Recommend scheduling patient for a cardiac event monitor/mobile cardiac telemetry monitoring. Patient surprisingly did not feel much symptoms when he was in abnormal rhythm. Obesity: Patient will benefit from weight loss. Hypertension: Blood pressure reasonably well controlled. Diabetes: Currently stable. Continue current management plans. Pedal edema: BNP WNL. Do not see evidence of elevated JVP therefore could well be due to venous insufficiency or dependency. Patient will benefit from leg elevation. Could use diuretics for symptomatic relief. Abdominal distention: This is chronic. A previous CT scan from 2011 shows significant intraperitoneal and visceral fat deposition. Patient encouraged to follow-up in the office for a event monitor. Patient informed that he would benefit from weight loss. Patient may also benefit from evaluation of sleep apnea syndrome as he is at high risk of having it and also discussed that sleep apnea syndrome could cause significant cardiac dysrhythmia. - Time Time with patient: Greater than 35 minutes - CODE STATUS was discussed, patient remains full code. Surrogate decision-maker unchanged. Multiple medical problems were addressed. More than 50% of the time spent coordinating care, discussing management plans with involved caregivers. Management plans discussed with involved personnels. Medical decision making was of moderate to high complexity, patient's has multiple comorbidities. Medications reviewed and adjusted accordingly: Yes
[2017-04-13] MEDS ORDERED: ATORVASTATIN CALCIUM 10 MG TABLET PO SCH (22:00)
[2017-04-13] MEDS ORDERED: METOPROLOL SUCCINATE 25 MG TAB.SR.24H PO SCH (22:00)
--- NOTE | 2017-04-17 19:19 | PDOC H&P ---
History of Present Illness Admission Date/PCP: 04/12/17 03:00 CRISTAL TAVARES Patient complains of: Shortness of breath History of Present Illness: JODI LEONARD is a 67 year old male with past medical history morbid obesity, obstructive sleep apnea, hypertension, black lung, chronic bronchitis, presents with 1 day of subjective fevers, dry cough and sinus congestion and shortness of breath. Patient did not get his flu shot this year. He has had 3 other instances this winter and said that steroids and a Z-Reuben have helped him. He admits palpitations, Depression Patient denies homicidal or suicidal ideation. I Will evaluate education reconciliation, TSH and obtain urine drug screen, consider SSRI and or mental health consultation. Denies syncope, hemoptysis, leg swelling, chest pain at rest, headache, back pain, nausea, vomiting or abdominal pain. Patient has chronic pedal edema which has been going on for last several weeks. Patient also has chronic abdominal swelling which she claims is also chronic. Patient was noted to have rapid heartbeat in the emergency room. Subsequently got Lopressor and also Cardizem. EKG is available does not show definitive A. fib but a tachycardic rhythm which is rather regular. Feel that it is mostly sinus tachycardia but would be considered high for a person in his age group. It could well be some kind of paroxysmal atrial tachycardia or ectopic atrial tachycardia. Patient denied any prior history of heart problems. 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 Past Medical History Cardiac Medical History: Reports: Hyperlipidema, Hypertension Denies: Atrial Fibrillation, Congestive Heart Failure, Coronary Artery Disease, Myocardial Infarction, Peripheral Vascular Disease, Pulmonary Embolism , Heart Murmur Pulmonary Medical History: Denies: Asthma, Bronchitis, Chronic Obstructive Pulmonary Disease (COPD), Pneumonia, Respiratory Failure, Sleep Apnea, Tuberculosis Neurological Medical History: Denies: Seizures Endocrine Medical History: Reports: Diabetes Mellitus Type 2, Hypothyroidism Denies: Hyperthyroidism Renal/ Medical History: Denies: End Stage Renal Disease Malignancy Medical History: Denies: Lung Cancer Musculoskeltal Medical History: Reports: Arthritis Denies: Fibromyalgia Past Surgical History Past Surgical History: Reports: Orthopedic Surgery - knee Denies: Appendectomy, Cholecystectomy, Coronary Artery Bypass Graft, Gastric Bypass Surgery, Herniorrhaphy, Pacemaker, Tonsillectomy Social History Smoking Status: Never Smoker Frequency of Alcohol Use: None Hx Recreational Drug Use: No Drugs: None Hx Prescription Drug Abuse: No - Advance Directive Resuscitation Status: Full Code Family History Family History: Hypertension Parental Family History Reviewed: Yes Children Family History Reviewed: Yes Sibling(s) Family History Reviewed.: Yes Medication/Allergy Home Medications: Allopurinol [Zyloprim 100 mg Tablet] 100 mg PO DAILY 04/12/17 Insulin Aspart [Novolog Flexpen] 14 unit SQ ACBRKFST 04/12/17 Insulin Aspart [Novolog Flexpen] 16 units SQ ACLUNCH 04/12/17 Insulin Aspart [Novolog Flexpen] 42 units SQ ACSUPPER 04/12/17 Insulin Detemir [Levemir Flextouch] 40 units SQ QHS 04/12/17 Krill/Om-3/Dha/Epa/Phospho/Ast [Krill Oil 500 mg Softgel] 500 mg PO DAILY Levothyroxine Sodium [Synthroid 0.075 mg Tablet] 0.075 mg PO Q6AM 04/12/17 Lisinopril [Prinivil 40 mg Tablet] 40 mg PO Q12 04/12/17 Meloxicam [Mobic] 15 mg PO DAILYP PRN 04/12/17 Nifedipine [Nifedipine ER] 30 mg PO DAILY 04/12/17 Omeprazole 40 mg PO ACBRKFST 04/12/17 Tamsulosin HCl [Flomax 0.4 mg Cap.sr] 0.4 mg PO DAILY 04/12/17 Amox Tr/Potassium Clavulanate [Augmentin 875-125 mg Tablet] 1 tab PO BID #20 tablet 04/13/17 Metoprolol Succinate [Toprol Xl 25 mg Tab.sr] 25 mg PO Q12 #30 tab.sr.24h Tamsulosin HCl [Flomax 0.4 mg Cap.sr] 0.4 mg PO PCSUPPER cap.sr.24h 04/13/17 Allergies/Adverse Reactions: sulfamethoxazole [From Bactrim] Allergy (Verified 10/08/12 09:06) trimethoprim [From Bactrim] Allergy (Verified 10/08/12 09:06) Physical Exam Vital Signs: Temp Pulse Resp BP Pulse Ox 98.7 F 55 L 18 135/56 H 98 04/13/17 15:21 04/13/17 15:21 04/13/17 15:21 04/13/17 15:21 04/13/17 15:21 General appearance: PRESENT: cooperative, mild distress, obese Results Laboratory Results: 04/13/17 05:00 04/13/17 05:00 Impressions: Chest X-Ray 04/11/17 23:05 IMPRESSION: No acute findings. Assessment & Plan - Diagnosis (1) Atrial fibrillation Qualifiers: Atrial fibrillation type: paroxysmal Qualified Code(s): I48.0 - Paroxysmal atrial fibrillation Is this a current diagnosis for this admission?: Yes Plan: Trial Cardizem, trend cardiac enzymes evaluate TSH. Cardiology consult echocardiogram consider anticoagulation. 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
== END 2017-04-13 16:13 | disposition home or self-care (01) | DRG 310 ==
LOC: ER 21:13 → EH 04-12 03:00 → 3W 04-12 06:10
PROVIDERS: ADMIT Internal Medicine; ATTEND Internal Medicine
PROC: 5A09357 Assistance with Respiratory Ventilation, Less than 24 Consecutive Hours, Continuous Positive Airway Pressure (ICD-10-PCS; principal; 2017-04-12)
PROC: 3E0F73Z Introduction of Anti-inflammatory into Respiratory Tract, Via Natural or Artificial Opening (ICD-10-PCS; 2017-04-12)
DX: I49.9 Cardiac arrhythmia, unspecified (principal); E11.8 Type 2 diabetes mellitus with unspecified complications; I10 Essential (primary) hypertension; E66.01 Morbid (severe) obesity due to excess calories; Z68.31 Body mass index [BMI] 31.0-31.9, adult; J32.9 Chronic sinusitis, unspecified; J60 Coalworker's pneumoconiosis; E78.00 Pure hypercholesterolemia, unspecified; E03.9 Hypothyroidism, unspecified; G47.33 Obstructive sleep apnea (adult) (pediatric); M19.90 Unspecified osteoarthritis, unspecified site; N40.0 Benign prostatic hyperplasia without lower urinary tract symptoms; Z79.4 Long term (current) use of insulin; Z79.899 Other long term (current) drug therapy; Z88.3 Allergy status to other anti-infective agents; Z88.2 Allergy status to sulfonamides; Z82.49 Family history of ischemic heart disease and other diseases of the circulatory system
CPT/HCPCS: 36415; 71046; 80048; 80053; 80061; 81001; 82962; 83735; 83880; 84443; 84484; 85025; 85027; 93005; 93010; 93306; 96374; 96375; 99285; C1751; J1644; J1815; J3490